=== PATIENT | male | born 1995 | race Caucasian/White ===

== ENCOUNTER 2024-09-03 17:41 | Emergency (ER) | payer BC, SELFPAY ==
[2024-09-03 17:59] VITALS: BP 162/87
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
[2024-09-03] MEDS: ZOFRAN ODT (ORALLY DISINTEGRATING) 4 MG PO (18:08)
[2024-09-03] MEDS: PERCOCET 5/325 1 TABLET PO (18:08)
[2024-09-03] MEDS: ADACEL 0.5 ML IM (18:09)
[2024-09-03 19:34] VITALS: BP 138/88
== END 2024-09-03 19:36 | disposition home or self-care (01) ==
LOC: EMR 17:41
PROVIDERS: EMERGENCY PHYSICIAN Emergency Medicine; FAMILY PHYSICIAN Family Medicine
DX: S80.02XA Contusion of left knee, initial encounter (principal); S80.212A Abrasion, left knee, initial encounter; V18.0XXA Pedal cycle driver injured in noncollision transport accident in nontraffic accident, initial encounter; Z23 Encounter for immunization
CPT/HCPCS: 99283; 90471; 73564; 90715